=== PATIENT | male | born 1955 | race Caucasian/White ===

== ENCOUNTER 2017-12-27 07:27 | Emergency (ER) | payer MEDICARE ==
[~2017-12-27] VITALS: Ht 180.3 cm; Wt 92.0 kg
[~2017-12-27 07:27] MED LIST: LISI10TA4 PO; TRIAMTERENE PO; VENL150C2 PO
[2017-12-27] MEDS ORDERED: ondansetron 4mg rapidly disintigrating tab PO ONE (07:45)
[2017-12-27] MEDS ORDERED: cloNIDine 0.1 mg tablet PO ONE (07:45)
[2017-12-27] MEDS ORDERED: LORazepam 1 MG tablet PO ONE (07:45)
[2017-12-27] MEDS ORDERED: CLON-529 PO (08:10)
[2017-12-27] MEDS ORDERED: ONDA8TAB9 PO (08:10)
[2017-12-27 08:22] VITALS: BP 124/68
== END 2017-12-27 08:15 | disposition home or self-care (01) ==
LOC: ER 07:28
DX: F11.23 Opioid dependence with withdrawal (principal); E78.00 Pure hypercholesterolemia, unspecified; I10 Essential (primary) hypertension; G89.29 Other chronic pain; Z98.890 Other specified postprocedural states; Z79.899 Other long term (current) drug therapy
CPT/HCPCS: 99283

== ENCOUNTER 2020-01-27 13:36 | Emergency (ER) | payer MEDICARE ==
[~2020-01-27] VITALS: Ht 180.3 cm; Wt 90.9 kg
[~2020-01-27 13:36] MED LIST changes: +CLON-529 PO; +ONDA8TAB9 PO
[2020-01-27] MEDS ORDERED: normal saline 1000ML IV soln IVB ONE (15:45)
[2020-01-27 16:14] LABS: BASOPHILS % (AUTO) 0.3 % (0-1); EOSINOPHILS % (AUTO) 0.1 % (0-6); HEMATOCRIT 42.2 % (42.0-52.0); HEMOGLOBIN 14.4 g/dl (14.0-17.9); LYMPHOCYTES # (AUTO) 0.7 X10'3 (1.1-4.8); LYMPHOCYTES % (AUTO) 9.2 % (21-51); MEAN CORPUSCULAR HGB CONC 34.2 g/dL (33.0-36.5); MEAN CORPUSCULAR VOLUME 102.4 FL (78-98); MEAN PLATELET VOLUME 6.9 FL (7.4-10.4); MONOCYTES # (AUTO) 0.5 X10'3 (0-0.9); NEUTROPHILS # (AUTO) 6.4 X10'3 (1.8-7.7); NEUTROPHILS % (AUTO) 83.4 % (42-75); PLATELET COUNT 70 X10'3 (140-440); RED BLOOD COUNT 4.12 X10'6 (4.70-6.10); WHITE BLOOD COUNT 7.7 X10'3 (4.5-11.0)
[2020-01-27 16:29] LABS: ALANINE AMINOTRANSFERASE 103 U/L (12-78); ALBUMIN 4.2 G/DL (3.4-5.0); ALBUMIN/GLOBULIN RATIO 1.2 (1.1-1.5); ALKALINE PHOSPHATASE 97 IU/L (46-116); ANION GAP 9 (8-16); ASPARTATE AMINO TRANSFERASE 179 U/L (10-37); BILIRUBIN,TOTAL 1.3 MG/DL (0.1-1.0); BLOOD UREA NITROGEN 9 MG/DL (7-18); BUN/CREATININE RATIO 10.6 (5.4-32.0); CALCIUM 8.4 MG/DL (8.5-10.1); CHLORIDE 99 MMOL/L (99-107); CREATININE 0.85 MG/DL (0.60-1.10); GLUCOSE 123 MG/DL (70-104); POTASSIUM 3.8 MMOL/L (3.5-5.1); SODIUM 133 MMOL/L (135-145); TOTAL CARBON DIOXIDE 25.3 MMOL/L (24-32); TOTAL PROTEIN 7.6 G/DL (6.4-8.2); eGFR > 90 ML/MIN
[2020-01-27 17:40] VITALS: BP 176/95
== END 2020-01-27 17:50 | disposition home or self-care (01) ==
LOC: ER 13:37
DX: B34.9 Viral infection, unspecified (principal); Z20.828 Contact with and (suspected) exposure to other viral communicable diseases; R05 Cough; R50.9 Fever, unspecified; R53.1 Weakness; E78.00 Pure hypercholesterolemia, unspecified; I10 Essential (primary) hypertension; G89.29 Other chronic pain; F32.9 Major depressive disorder, single episode, unspecified; Z98.890 Other specified postprocedural states; Z79.899 Other long term (current) drug therapy
CPT/HCPCS: 36415; 71045; 80053; 83880; 84484; 85025; 87635; 93005; 96360; 99285; J7030